=== PATIENT | male | born 1990 | race Caucasian/White ===

== ENCOUNTER 2024-02-16 21:33 | Emergency (ER) | payer SELFPAY ==
[2024-02-16] MEDS: Albuterol/Ipratropium 3.0-0.5 MG/3 ML Neb Soln NEB ONE (22:43)
[2024-02-16] MEDS: Ibuprofen 600 MG Tab PO ONE (22:43)
[2024-02-16 23:27] LABS: CORONAVIRUS COVID-19 NAA NEGATIVE (NEGATIVE); INFLUENZA A NAA NEGATIVE (NEGATIVE); INFLUENZA B NAA NEGATIVE (NEGATIVE); RESPIRATORY SYNCYTIAL VIR NAA NEGATIVE (NEGATIVE)
[2024-02-17] MEDS: cefTRIAXone 1 GM in Sodium Chloride 0.9% 50 ML IV ONE (00:21)
[2024-02-17] MEDS: Azithromycin 500 MG in Sodium Chloride 0.9% 250 ML IV ONE (00:21)
[2024-02-17] MEDS: Sodium Chloride 0.9% 1,000 ML IV ONE (00:21)
[2024-02-17] MEDS: methylPREDNISolone Sodium Succinate 125 MG/2 ML SDV IVPUSH ONE (00:21)
[2024-02-17] MEDS: Acetaminophen/oxyCODONE 325-5 MG Tab PO ONE (00:22)
[2024-02-17 00:37] LABS: HEMATOCRIT 47.1 % (42.0-52.0); HEMOGLOBIN 16.7 g/dL (14.0-18.0); MEAN CORPUSCULAR HEMOGLOBIN 31.6 pg (28.0-32.0); MEAN CORPUSCULAR HGB CONC 35.5 g/dL (32.0-36.0); MEAN PLATELET VOLUME 10.5 fL (9.4-12.4); PLATELET COUNT,PLT 220 K/uL (150-400); RED BLOOD CELL COUNT 5.29 M/uL (4.52-5.90); WHITE BLOOD CELL COUNT,WBC 19.42 K/uL (3.9-11.3)
[2024-02-17 00:59] LABS: A/G RATIO 0.7 (0.9-1.6); ALBUMIN 3.4 g/dL (3.4-5.0); BILIRUBIN TOTAL 0.6 mg/dL (0.2-1.0); CARBON DIOXIDE,CO2 24.3 mmol/L (21.0-32.0); CREATININE 1.4 mg/dL (0.8-1.3); EST CRCL DRUG DOSING (CG) 71.48 mL/min; POTASSIUM,K 3.6 mmol/L (3.5-5.1); PROTEIN TOTAL,TP 8.4 g/dL (6.4-8.2)
[2024-02-17 01:16] LABS: BASOPHILS ABSOLUTE MAN 0.19 K/uL (0.00-0.20); BASOPHILS PERCENT MAN 1 % (0-1); LYMPHOCYTES PERCENT MAN 18 % (24-44); MONOCYTES ABSOLUTE MAN 2.14 K/uL (0.00-0.80); MONOCYTES PERCENT MAN 11 % (0-8); SEG NEUTROPHILS ABSOLUTE MAN 13.59 K/uL (1.80-7.70); SEG NEUTROPHILS PERCENT MAN 70 % (41-71)
== END 2024-02-17 02:24 | disposition home or self-care (01) ==
LOC: MW.ED 21:33
DX: J18.9 Pneumonia, unspecified organism (principal); Z79.899 Other long term (current) drug therapy; Z75.8 Other problems related to medical facilities and other health care
CPT/HCPCS: 0241U; 36415; 71045; 80053; 85025; 96365; 96375; 99284; A9270; J0456; J0696; J2930; J3490; J7030; J7050; 99283; J7620-GY

== ENCOUNTER 2024-05-01 19:54 | Emergency (ER) | payer SELFPAY ==
[2024-05-01 20:51] LABS: BASOPHILS ABSOLUTE AUTO 0.11 K/uL (0.00-0.20); BASOPHILS PERCENT AUTO 0.8 % (0.0-1.0); EOSINOPHILS ABSOLUTE AUTO 0.23 K/uL (0.00-0.45); EOSINOPHILS PERCENT AUTO 1.7 % (0.0-6.0); HEMATOCRIT 44.2 % (42.0-52.0); HEMOGLOBIN 15.7 g/dL (14.0-18.0); IMMATURE GRAN ABSOLUTE AUTO 0.08 K/uL (0.00-0.05); IMMATURE GRAN PERCENT AUTO 0.6 % (0.0-0.4); LYMPHOCYTES ABSOLUTE AUTO 4.04 K/uL (1.00-4.80); MEAN CORPUSCULAR HEMOGLOBIN 31.9 pg (28.0-32.0); MEAN CORPUSCULAR HGB CONC 35.5 g/dL (32.0-36.0); MEAN CORPUSCULAR VOLUME 89.8 fL (83.0-99.0); MEAN PLATELET VOLUME 10.2 fL (9.4-12.4); MONOCYTES ABSOLUTE AUTO 0.99 K/uL (0.00-0.80); MONOCYTES PERCENT AUTO 7.1 % (0.0-8.0); NEUTROPHILS ABSOLUTE AUTO 8.48 K/uL (1.80-7.70); NEUTROPHILS PERCENT AUTO 60.8 % (41.0-71.0); PLATELET COUNT,PLT 239 K/uL (150-400); RED BLOOD CELL COUNT 4.92 M/uL (4.52-5.90); WHITE BLOOD CELL COUNT,WBC 13.93 K/uL (3.9-11.3)
[2024-05-01 21:27] LABS: CALCIUM 8.6 mg/dL (8.5-10.1); CARBON DIOXIDE,CO2 22.5 mmol/L (21.0-32.0); CREATININE 1.3 mg/dL (0.8-1.3); EST CRCL DRUG DOSING (CG) 76.98 mL/min; POTASSIUM,K 3.6 mmol/L (3.5-5.1)
[2024-05-01] MEDS: Ibuprofen 800 MG Tab PO ONE (21:56)
[2024-05-01] MEDS: Cephalexin 500 MG Cap PO ONE (22:13)
== END 2024-05-01 22:46 | disposition home or self-care (01) ==
LOC: MW.ED 19:54
DX: M10.9 Gout, unspecified (principal)
CPT/HCPCS: 36415; 73630; 80048; 85025; 85379; 99283; A9270